=== PATIENT | male | born 1940 | race Caucasian/White ===

== ENCOUNTER 2017-05-09 11:18 | Inpatient (IN) | payer MEDICARE, OTHER ==
[~2017-05-09] VITALS: Ht 182.9 cm; Wt 94.6 kg
[2017-05-09] VITALS (10 sets, daily range): BP systolic 96–133; BP diastolic 61–81; PULSE 72–93; RESP 13–22; O2SAT 99–100
--- NOTE | 2017-05-09 12:00 | ED.REPORT ---
HPI-General Illness Date of Service May 09, 2017 ED Provider: Liza Mcgarry MD Patient is a 76 year old male with a history of diabetes, STEMI (6 months ago) status-post pacemaker (6 weeks ago) and CABGx3 who presents to the ED complaining of hematochezia onset 1000 this morning. He reports that it was loose stool. Patient states that it was bright red blood mixed with his stool. The patient states that he had 3 more episodes. Patient denies abdominal pain, chest pain, shortness of breath, dizziness or other symptoms at this time. The patient was on antibiotics 6 weeks ago after his pacemaker insertion and does not take any anticoagulants but does take ASA. Nursing Notes Stated Complaint: BLOODY DIARRHEA Chief Complaint: Male Abdominal Pain Nursing Notes Reviewed: Yes Allergies: Coded Allergies: adhesive tape (Verified Allergy, Severe, rash, 05/09/17) Scheduled Aspirin (Aspirin) 81 Mg Tablet 162 MG PO HS Atorvastatin Calcium (Atorvastatin Calcium) 40 Mg Tablet 40 MG PO HS Carvedilol (Carvedilol) 3.125 Mg Tablet 3.125 MG PO BID Levothyroxine (Levothyroxine) 137 Mcg Tablet 137 MCG PO HS Metformin (Glucophage) 1,000 Mg Tablet 1,000 MG PO BID Sacubitril/Valsartan (Entresto 49 mg-51 mg Tablet) 49 Mg-51 Mg Tablet 1 TAB PO BID Spironolactone (Spironolactone) 25 Mg Tablet 25 MG PO QAM Scheduled PRN diphenhydrAMINE HCl (Benadryl) 25 Mg Capsule 25 MG PO DAILY PRN PRN allergies General Time Seen by MD: 11:58 Chief Complaint Blood in stool Hx Obtained From: Patient Arrived By: Walk-in Sudden in Onset?: Yes Onset Occurred: 1 - 4 hours ago Symptom Duration: Since onset Severity: Current: No pain currently Similar Sx Previous: No Past Medical History Past Medical History Reports: Diabetes mellitus Past Surgical History Reports: CABG Reports: Pacemaker insertion Smoking History Unknown if Ever Smoker Social History Alcohol Use: Denies alcohol use Other Social History: Good social support, Ambulatory Status Independent Review of Systems Full Review of Systems Constitutional: Denies: Chills, Fever Respiratory: Denies: Shortness of breath Cardiovascular: Denies: Chest pain GI: Reports: Bloody/tarry stool, Diarrhea, Hematochezia, Denies: Abdominal pain, Vomiting Skin: Denies Diaphoresis Neurologic: Denies: Dizziness Complete sys rev & neg: except as marked. Physical Exam Vital Signs Vital Signs Date Time Temp Pulse Resp B/P Pulse Ox O2 Delivery O2 Flow Rate FiO2 05/09/17 13:55 75 22 120/65 100 Room Air 05/09/17 13:27 76 16 121/68 100 05/09/17 12:55 81 20 121/68 100 Room Air 05/09/17 12:22 78 13 123/68 100 Room Air 05/09/17 11:29 36.8 93 18 127/81 100 Room Air Initial VS: Reviewed General/Constitutional: Awake, Alert, No acute distress Head / Eyes: Atraumatic, Normocephalic Respiratory / Chest: Atraumatic, Breath sounds NL, Breath sounds = bilat, No respiratory distress Cardiovascular: Heart rate NL, Regular rhythm, Heart sounds NL Abdomen: Atraumatic, Soft, Non-tender Bowel Sounds / Distention: Positive: Bowel sounds hyperactive Lower Extremity / Pelvis / MS: Atraumatic, No edema Skin: Atraumatic, Color NL, No rash, Warm, Dry not diaphoretic or pale Neurologic: Oriented X3, Speech NL, Gait NL Interpretation & Diagnostics Lab Results Interpretation Result Diagram: 05/09/17 1325 05/09/17 1234 Test 05/09/17 12:34 05/09/17 13:25 White Blood Count 10.2th/mm3 (3.8-10.1) Red Blood Count 4.70mil/mm3 (4.40-5.80) Mean Corpuscular Volume 88.7fL (81-100) Mean Corpuscular Hemoglobin 29.1pg (27.0-35.0) Mean Corpuscular Hemoglobin Concent 32.9% (32.0-37.0) Red Cell Distribution Width 15.8% (12.3-15.4) Platelet Count 277bil/L (150-400) Neutrophils (%) (Auto) 72.6% (40-74) Lymphocytes (%) (Auto) 18.4% (14-46) Monocytes (%) (Auto) 7.3% (4-12) Eosinophils (%) (Auto) 1.3% (0-5) Basophils (%) (Auto) 0.2% (0-3) Prothrombin Time 10.3sec (8.1-12.5) Prothromb Time International Ratio 0.96ratio Sodium Level 139mEq/L (134-144) Potassium Level 4.6mEq/L (3.5-5.2) Chloride Level 101mEq/L (97-108) Carbon Dioxide Level 22mmol/L (18-29) Blood Urea Nitrogen 22mg/dL (8-27) Creatinine 0.73mg/dL (0.76-1.27) Estimat Glomerular Filtration Rate 111mL/min (>59) Glucose Level 136mg/dL (60-99) Calcium Level 9.1mg/dL (8.5-10.1) Magnesium Level 2.0mg/dL (1.6-2.6) Total Bilirubin 0.6mg/dL (0.0-1.2) Aspartate Amino Transf (AST/SGOT) 22U/L (0-50) Alanine Aminotransferase (ALT/SGPT) 24U/L (0-44) Alkaline Phosphatase 74U/L (25-160) Troponin T < 0.010ug/L (0.0-0.011) Total Protein 7.2g/dL (6.4-8.4) Albumin 4.4g/dL (3.4-5.0) Hold Abdalla Top Tube Received (Received) Hemoglobin 12.3g/dL (13.8-17.2) Hematocrit 37.7% (41.0-50.0) ECG Interpretation ECG Interpretation: old anterior infarct nonspecific T abnormalities in the lateral leads Time: 13:39 Interpreted by: ED physician Normal ECG Interpretation: Normal rate (75), Normal sinus rhythm X-Ray Chest Interpretation Chest Xray Interpretation: IMPRESSION: 1. No acute cardiopulmonary disease. Dictated by: Delgado Cano M.D. on 05/09/2017 at 13:34 Approved by: Delgado Cano M.D. on 05/09/2017 at 13:42 Interpretation / Wet Read by: Interpret - Radiologist Re-Eval/Medical Decision Med Decision/Clinical Course 76-year-old gentleman presents with an initial episode of what he describes as bright red blood with a bowel movement. It was followed shortly thereafter by 3 more episodes of what he describes as bloody diarrhea. Has episode of this in the emergency room and it looks far more like melena then diarrhea or any diverticular type bleeding. His proceeded to have at least to my large-volume melanotic stools in the emergency department. Throughout his entire emergency room stay he has remained hemodynamically very stable. He is not tachycardic he is not orthostatic or hypotensive. He is not having chest pain or abdominal pain. He does have hyperactive bowel tones in continues to have significant amounts of melanotic stool. He is given a liter of fluid to begin volume resuscitation again he is not orthostatic nor is he hypertensive. Second H&H after an hour is being obtained. He does have 2 large-bore IVs. Contacted gastroenterology and will contact him again should he become acutely unstable otherwise will expect hospital inpatient consultation. Cares been reviewed with the hospitalist and he will go to the PCU In the emergency room he is started on proton pump inhibitor drip. He had a STEMI in October of this year followed by a 3 vessel bypass at [facility]. He had a pacer defibrillator placed about 6 weeks ago presumably for a very low ejection fraction but records have been requested. He remains clinically stable while in the ER. I continue to remain quite concerned about the volumes of melanotic stool is producing Time of Eval: 12:25 Re-Evaluation/Progress Note: Stool examination reveals moderate melanotic type stool. Time of Eval: 12:52 Re-Evaluation/Progress Note: Discussed concerns and plan for repeat H&H testing. Discussed plan for admit. patient understands and agrees to plan. All questions were addressed. Consultation #1: Referral / Consult Name: Hernan Francis MD Consulted With: On-call physician (GI) Call Returned at: 12:38 Scholarship Counselor: Will see patient, Agrees with eval, Agrees with plan Consultation #2: Referral / Consult Name: Mary Magallanes DO Consulted With: Hospitalist Call Returned at: 13:33 Scholarship Counselor: Agrees with eval, Agrees with plan, Accepts admit Counseled Regarding: Diagnosis, Lab results, Need for admission Discharge & Departure Primary Impression: GI bleed GI bleed type/associated pathology: unspecified gastrointestinal hemorrhage type Qualified Code: K92.2 - Gastrointestinal hemorrhage, unspecified Disposition: ADMITTED TO HOSPITAL Discharge Condition All VS Reviewed: Yes Condition: Stable Referrals: Marcel Nice MD (PCP) (Family) Crit Care Except Billable Proc Time Spent: 30-74 minutes Scribe Attestation Portions of this note were transcribed by Hilda Forrester. I, Dr. Mcgarry personally performed the history, physical exam and medical decision-making; I reviewed and confirmed the accuracy of the information in the transcribed note. Signed by: Alexx Kramer, 05/09/17. copies to: Marcel Nice MD, Shawna L MD May 09, 2017 12:00 Homa Forrester May 09, 2017 12:08
[2017-05-09] MEDS ORDERED: Pantoprazole Inj 80 MG, Pharmacy To Mix 1 EA in 0.9% Sodium Chloride 80 ML IV ONE ×2 (12:25)
[2017-05-09] MEDS ORDERED: Pantoprazole 4 mg/mL 10 mL Inj IVPUSH ONE (12:25)
[2017-05-09] MEDS ORDERED: 0.9% Sodium Chloride 1,000 ML IV ONE (12:25)
[2017-05-09 12:37] LABS: BASOPHILS % (AUTO) 0.2 % (0-3); EOSINOPHILS % (AUTO) 1.3 % (0-5); MONOCYTES % (AUTO) 7.3 % (4-12); Mean Corpuscular Hemoglobin 29.1 pg (27.0-35.0); Mean Corpuscular Volume 88.7 fL (81-100); NEUTROPHILS % (AUTO) 72.6 % (40-74); Platelet Count 277 bil/L (150-400)
[2017-05-09 12:53] LABS: INR 0.96 ratio
[2017-05-09 13:26] LABS: TROPONIN T < 0.010 ug/L (0.0-0.011)
--- NOTE | 2017-05-09 13:44 | DRSVH ---
PROCEDURE: X-RAY CHEST ONE VIEW, PORTABLE ([id number]) INDICATIONS: dysthrythmia TECHNIQUE: One view of the chest was acquired. COMPARISON: [facility], CR, CHEST 1 VIEW, 11/03/2016, 21:50. [facility], CR, CHEST 2VW, 03/19/2013, 9:52. FINDINGS: Surgical changes and devices: Left chest with AICD is demonstrated with leads projecting over the rig ht atrium and right ventricle. Lungs and pleura: No pleural effusions or pneumothorax. Visualized lungs are clear. Mediastinum: Mediastinal contours appear normal. Heart size is normal. Bones and chest wall: No suspicious bony lesions. Overlying soft tissues appear unremarkable. IMPRESSION: 1. No acute cardiopulmonary disease. Dictated by: Delgado Cano M.D. on 05/09/2017 at 13:34 Approved by: Delgado Cano M.D. on 05/09/2017 at 13:42
[2017-05-09] MEDS ORDERED: LEVO137T2 PO (14:38)
[2017-05-09] MEDS ORDERED: SACU1TAB7 PO (14:38)
[2017-05-09] MEDS ORDERED: METF1000 PO (14:38)
[2017-05-09] MEDS ORDERED: ASPI-973 PO (14:38)
[2017-05-09] MEDS ORDERED: SPIR25TA3 PO (14:38)
[2017-05-09] MEDS ORDERED: ATOR40TA69 PO (14:38)
[2017-05-09] MEDS ORDERED: CARV3.122 PO (14:38)
[2017-05-09] MEDS ORDERED: DIPH25CA6 PO (14:39)
--- NOTE | 2017-05-09 15:42 | PCM.HPMED ---
Subjective Date of Service May 09, 2017 Primary Provider: Admitting Physician: Mary Magallanes DO Primary Care Physician: Marcel Nice MD Attending Physician: Mary Magallanes DO Admit Status: From the Emergency Department Chief Complaint: bloody and loose bowel movements History of Present Illness: Nicholas Farmer is a 76 y/o male with a significant PMH of STEMI (10/29) s/p CABG X3 and combined AICD and pacemaker implant about 6 weeks ago, diabetes mellitus Type II, and thyroid cancer s/p thyroidectomy and radiation who presents to the ED with bloody diarrhea. Patient states he had his first bowel movement around 10:00 am today, described as soft in consistency and cranberry colored. Had 3 more bloody bowel movements before presentation to ER. Admits to recent changes in diet, including increased fiber. Denies dizziness, loss of balance, or syncope. Denies abdominal pain, nausea or vomiting. Denies associated fever or chills as well as lightheadedness, visual changes, chest pain, SOB. Denies previous history of similar symptoms, although has noticed that his stool is softer for last month. He notes that he has skin tags in the breezy-anal area that can sometimes bleed but very minimally. Denies significant alcohol use or smoking history. Pertinent negative PMH of GERD or stomach ulcers. Denies NSAID use but does take aspirin 81 mg daily. Last use of antibiotics was about 6 weeks ago. Denies any recent unintentional weight loss, fatigue, or weakness. Reports last colonoscopy about 5-10 years ago was normal. ED course: Vital signs in the ED were: Temp 36.8, HR 93, RR 18, BP 127/81, 100% RA. Patient had 4 bowel movements, consistent with diarrhea and melanotic appearance. Pertinent labs include: WBC of 10.2, HGB 13.7, HCT 41.8. About 1 hour later, Hgb decreased to 12.3 and Hct down to 37.7. GI, Dr. Francis was consulted. Patient Was started on Protonix bolus (8 mg IV 1x) and protonix drip and normal saline (1000 ml IV 1x). When patient was transferred on the floor, nurse noticed that the stool did not appear melanotic, but rather bright red like hematochezia. He is being admitted for likely GI bleed with resultant normocytic anemia. Review of Systems: The comprehensive review of systems was conducted with the patient and found to be negative except as above in the history of present illness. 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, and thyroid cancer s/ p thyroidectomy and radiation Surgical History CABG Combined AICD and pacemaker placement Thyroidectomy Tonsillectomy Lower extremity surgery following a fall Family History Gema history is significant for a mother who had a CVA at age 64, father with history of ulcers and CVA, grandmother with history of pancreatic cancer Social History Hx Alcohol Use: No Hx Substance Use: No Hx Tobacco Use: Yes Smoking Status: Former Smoker (1 year 55 years ago) Years of Smokin Living Arrangement: with Family Exam Vital Signs Vital Sign - Last Date Time Temp Pulse Resp B/P Pulse Ox O2 Delivery O2 Flow Rate FiO2 05/09/17 13:55 75 22 120/65 100 Room Air 05/09/17 11:29 36.8 Exam General: Patient is lying comfortably on bed, AAOX3, not in acute distress, cooperative and pleasant. HEENT: head normocephalic and atraumatic, PERRLA, EOMI, no scleral icterus, noninjected conjunctiva Neck: neck supple, non-tender, no lymphadenopathy, trachea midline, no JVD CV: regular rate and rhythm, s1 and s2 heard, radial pulses equal bilaterally, no rubs, murmurs or gallops, no edema Lungs: Clear to auscultation bilaterally, no wheezes, rales or rhonchi, no increased work of breathing Abdomen: hyperactive bowel sounds on 4Q, soft, non-distended, non-tender to palpation, no organomegally, Skin: warm and dry, CABG incision well healed, incision from AICD/ ppm healing properly, no erythema, or bleeding Musculoskeletal: 12/17 UE and LE strength bilaterally, full ROM bilaterally Neuro: Grossly neurologically intact, cranial nerves II through XII intact, no dyskinesia, dysmetria, or dysdiadochokinesia noted, decreased sensation on soles of feet bilaterally Psych: Normal mood and affect Lab and Diagnostics Labs Laboratory Tests Test 05/09/17 12:34 05/09/17 13:25 05/09/17 15:30 White Blood Count 10.2th/mm3 (3.8-10.1) Red Blood Count 4.70mil/mm3 (4.40-5.80) Hemoglobin 13.7g/dL (13.8-17.2) 12.3g/dL (13.8-17.2) 12.7g/dL (13.8-17.2) Hematocrit 41.7% (41.0-50.0) 37.7% (41.0-50.0) 38.3% (41.0-50.0) Mean Corpuscular Volume 88.7fL (81-100) Mean Corpuscular Hemoglobin 29.1pg (27.0-35.0) Mean Corpuscular Hemoglobin Concent 32.9% (32.0-37.0) Red Cell Distribution Width 15.8% (12.3-15.4) Platelet Count 277bil/L (150-400) Neutrophils (%) (Auto) 72.6% (40-74) Lymphocytes (%) (Auto) 18.4% (14-46) Monocytes (%) (Auto) 7.3% (4-12) Eosinophils (%) (Auto) 1.3% (0-5) Basophils (%) (Auto) 0.2% (0-3) Prothrombin Time 10.3sec (8.1-12.5) Prothromb Time International Ratio 0.96ratio Sodium Level 139mEq/L (134-144) Potassium Level 4.6mEq/L (3.5-5.2) Chloride Level 101mEq/L (97-108) Carbon Dioxide Level 22mmol/L (18-29) Blood Urea Nitrogen 22mg/dL (8-27) Creatinine 0.73mg/dL (0.76-1.27) Estimat Glomerular Filtration Rate 111mL/min (>59) Glucose Level 136mg/dL (60-99) Calcium Level 9.1mg/dL (8.5-10.1) Magnesium Level 2.0mg/dL (1.6-2.6) Total Bilirubin 0.6mg/dL (0.0-1.2) Aspartate Amino Transf (AST/SGOT) 22U/L (0-50) Alanine Aminotransferase (ALT/SGPT) 24U/L (0-44) Alkaline Phosphatase 74U/L (25-160) Troponin T < 0.010ug/L (0.0-0.011) Total Protein 7.2g/dL (6.4-8.4) Albumin 4.4g/dL (3.4-5.0) Hold Abdalla Top Tube Received (Received) Result Diagram: 05/09/17 1325 05/09/17 1234 X-Rays, CTs and MRIs PROCEDURE: X-RAY CHEST ONE VIEW, PORTABLE ([id number]) IMPRESSION: 1. No acute cardiopulmonary disease. Approved by: Delgado Cano M.D. on 05/09/2017 at 13:42 12-lead ECG ECG Interpretation: old anterior infarct nonspecific T abnormalities in the lateral leads Time: 13:39 Interpreted by: ED physician Normal ECG Interpretation: Normal rate (75), Normal sinus rhythm Assessment & Plan Nicholas Farmer is a 76 y/o male with a significant PMH of STEMI (10/29) s/p CABG X3 and combined AICD and pacemaker implant about 6 weeks ago, diabetes mellitus Type II, and thyroid cancer s/p thyroidectomy and radiation who presents to the ED with bloody diarrhea, initially bright red blood followed by melena. Pertinent labs include: WBC of 10.2, HGB 13.7, HCT 41.8. About 1 hour later, Hgb decreased to 12.3 and Hct down to 37.7. GI, Dr. Francis was consulted. Patient Was started on Protonix bolus (8 mg IV 1x) and protonix drip and normal saline (1000 ml IV 1x). He is being admitted for likely GI bleed with resultant normocytic anemia. Acute GI bleed with Melena and Hematochezia, present on admission, ongoing. -Patient reports that around 10 am, he noticed soft stools with bright red blood. ED reports that patient had multiple episodes of diarrhea with melanotic stools. Nurse described the stool as more like hematochezia. -Possible etiologies of Upper VS Lower GI bleed include: PUD, erosive gastropathy, esophagitis, diverticular bleed, polyp/tumor VS infectious etiology -BUN/CR ratio 30 -H/H on admit was 13.7/ 41.8. 1 hour later, H/H trended down to 12.3/37.7. -Blood pressures have remained stable. Patient received 1L NS bolus in ED. -Patient is not on any anticoagulation. Takes ASA daily. Hold ASA -IV protonix bolus and drip initiated in the ED. Continue. -Blood Typed and Crossed. Holding 2 units of PRBCs -Trend H/H q6hrs. Transfuse with threshold of Hgb <8 given extensive cardiovascular history of CAD, consent has been signed for transfusion -Keep patient NPO after midnight clear liquids until then. IV hydration with NS at 75 mls/hr -Stool sent for cultures to rule out infectious etiology -Gastroenterology, Dr. Francis was consulted in the ED will take the patient for colonoscopy and possible upper EGD tomorrow -Plan is for patient to undergo colonoscopy tomorrow in am given hematochezia and possible EGD if colonoscopy findings are negative. Normocytic Anemia, present on admission, ongoing. -H/H on admit was 13.7/ 41.8. 1 hour later, H/H trended down to 12.3/37.7. -Trend H/H q6hrs. Transfuse with threshold of Hgb <8 given extensive cardiovascular history of CAD --Blood Typed and Crossed. Holding 2 units of PRBCs Type II Diabetes Mellitus with complications of peripheral neuropathy, present on admission, ongoing -Blood glucose in the ED was 136 -Hold home metformin -Mcdonough lispro correctional scale -Order [id number] History of STEMI s/p CABG X3 and combined AICD/pacemaker implant, present on admission, chronic -EKG in the ED shows NSR with HR 75 and evidence of old anterior infarct -Continue Carvedilol, Entresto and Spironolactone -Monitor telemetry History of thyroid carcinoma s/p thyroidectomy and radiation -Continue Levothyroxine Patient Status: Patient is admitted under inpatient status expected length of stay greater than 2 midnights due to severity of presenting symptoms, risk of adverse events, and complexity of treatment plan. Code Status: Full Code Pain Evaluation: Adequate Pain Control GI Prophylaxis: Proton Pump Inhibitor (on IV protonix drip ) VTE Prophylaxis Indicated: Contraindicated (GI bleed) VTE Mechanical Devices: Intermittant Pneumatic CD Resuscitation Status: CPR: Attempt Resuscitation Time spent Greater than 45 minutes Attending Statement The patient was seen and examined together with Dr. Salomon on 05/09/17 and I have added additional information to the note above. Britta Salomon DO May 09, 2017 14:57 Mary Magallanes DO May 09, 2017 17:47
[2017-05-09] MEDS ORDERED: Glucose 40% Oral Gel 15 Gm Tube PO PRN (16:35)
[2017-05-09] MEDS ORDERED: Dextrose 10% 250 ML IV PRN (16:40)
[2017-05-09] MEDS: Insulin LISPRO 300 Unit/3 mL Inj SUBQ SCH ×2 (16:58→22:00)
[2017-05-09 17:08] LABS: APPEARANCE,URINE CLEAR (CLEAR,HAZY); COLOR,URINE YELLOW (YELLOW); OCCULT BLOOD,URINE NEGATIVE (NEGATIVE); PH,URINE 5.5 (5.0-8.0); UROBILINOGEN,URINE NORMAL (NORMAL)
--- NOTE | 2017-05-09 17:12 | PCM.ADCARE ---
Advance Care Planning Note Plan: Date: 05/09/2017 Diagnosis: Acute blood loss anemia GI bleed Hypothyroidism secondary to thyroidectomy due to thyroid cancer Diabetes CABG Pacemaker 6 weeks ago Purpose of encounter: Goals of care Parties in attendance: The patient, his , Dr. Salomon, Dr. Tovar, his nurse Dr. Elpidio Brand Decisional capacity: Good Plan: The patient is aware of the current diagnosis and would like to continue to be full code. The patient and understands that this means for chest compressions, intubation, pressors, and all measures involved with CPR. CODE STATUS: Full code Time spent with advanced care planning: Greater than 16 minutes Mary Magallanes DO May 09, 2017 17:12
[2017-05-09] MEDS ORDERED: diphenhydrAMINE 25 mg Capsule PO PRN (17:20)
[2017-05-09] MEDS: 0.9% Sodium Chloride 1,000 ML IV SCH (17:23)
[2017-05-09] MEDS ORDERED: PEG/Electrolytes 4,000 mL Solution PO ONE (17:25)
--- NOTE | 2017-05-09 21:13 | CONS ---
[address] [address] CONSULTATION REPORT PATIENT: SHER WALDEN : 1940 MR#: [id number] ADMIT: 05/09/2017 JOB ID: [id number] DATE OF SERVICE: REQUESTING PROVIDER: Liza Mcgarry MD. REASON FOR CONSULTATION: GI bleeding. HISTORY OF PRESENT ILLNESS: This is a 76-year-old male on aspirin for coronary artery disease, with a recent ID about six weeks ago. He also has a pacemaker. He otherwise has not experienced any antecedent change in bowel habit. This morning, however, at around 10 a.m., he started to pass in essence dark, obviously bloody bowel motion. He has had no abdominal pain, nausea, or vomiting with any of his symptoms. He was not presyncopal or syncopal. Vital signs have been stable. He came into the ED this morning and his hemoglobin was 13.7. It has since dropped to 12.3 at around 1:25 this afternoon. Subsequently, at about 3:30, he demonstrated stability with a hemoglobin of 12.7. ALLERGIES: ADHESIVE TAPE. MEDICATIONS: Aspirin, Benadryl, Lipitor, carvedilol, sacubitril, valsartan, spironolactone, levothyroxine, and metformin. The patient denies any other nonsteroidal anti-inflammatory use. MEDICAL HISTORY: Diabetes, hypertension, coronary artery disease, thyroid cancer, history of radiation. PAST SURGICAL HISTORY: Coronary artery bypass grafting, combined AICD and pacemaker placement, thyroidectomy, tonsillectomy, lower extremity surgery following a fall. He has a history of a remote colonoscopy by Dr. Knox many years ago and does not recall any polyps ever being removed. He has never had an upper endoscopy. FAMILY HISTORY: Stroke and pancreatic cancer are in the family. SOCIAL HISTORY: He is an ex-smoker. Does not use any other substances. His was at the bedside. REVIEW OF SYSTEMS: No report of any current cardiopulmonary complaints. He is otherwise feeling well. No antecedent weight loss. He has not experienced any problems with reflux or difficulty swallowing. Typically at his baseline, he has had a slight diathesis towards constipation where he may not have a bowel movement for two or three days. The patient was out for dinner this past Tuesday, celebrating an anniversary. He had clams, muscles and shrimp in a pasta dish. OBJECTIVE: Blood pressure 122/70, pulse 74, breathing 18, temperature 36.7, 99% on room air. The patient was in no distress. Alert, oriented, appropriate, cooperative, conversational. Skin: Warm and dry. Sclerae anicteric. Lungs: Clear bilaterally. Good respiratory effort. Heart regular. No significant peripheral pitting edema. Abdomen was soft, with bowel sounds. No focal areas of tenderness elicited throughout. In the bedside commode, I saw perhaps about 100 cc of obvious dark red excrement. This did not look like classic melena. LABORATORIES: Hemoglobin 12.7, hematocrit 38.3. INR is 0.96. Platelets were 277. White count at presentation 10.2, with a normal differential. Liver tests are normal. Glucose was 136, creatinine 0.73. BUN was 22. The remainder of the electrolytes were normal. Stool study was collected for enteric pathogens by PCR and is pending. IMAGING: Chest x-ray showed no acute cardiopulmonary disease. ASSESSMENT AND RECOMMENDATIONS: This is a 76-year-old male with onset of gastrointestinal bleeding today, starting around 10 a.m. This has been painless without presyncope or postural symptoms. His hemoglobin is actually relatively stable this afternoon in spite of the appearance in the bedside commode of the maroon dark red output. I think it is quite unlikely that he is having an upper GI bleed based on his overall clinical stability. I suspect this is most likely a lower source. I therefore recommended we proceed with bowel prep this afternoon and have placed him on the schedule for colonoscopy tomorrow morning at 7:30. If there is absolutely no explanation at colonoscopy, we plan to add on an EGD at that time. For now, I have no problem with the patient remaining on a PPI drip overnight. I have ordered the bowel prep. He can be on clear liquids until 4:30 in the morning. I would recommend nothing red. Endo staff are aware of the add-on request and are attempting to get his pacemaker/AICD paperwork complete. Based on his higher risk status I have requested anesthesia for his sedation experience. I discussed the risks of EGD and colonoscopy with the patient and his at the bedside. The patient has verbally consented and I have requested that he sign the written paperwork as well.
[2017-05-09] MEDS ORDERED: Pantoprazole Inj 80 MG in 0.9% Sodium Chloride 80 ML IV SCH (22:00)
[2017-05-10] VITALS (16 sets, daily range): BP systolic 88–122; BP diastolic 42–78; PULSE 73–95; RESP 16–22; O2SAT 94–98
[2017-05-10 03:53] LABS: BASOPHILS % (AUTO) 0.1 % (0-3); EOSINOPHILS % (AUTO) 0.5 % (0-5); MONOCYTES % (AUTO) 6.5 % (4-12); Mean Corpuscular Hemoglobin 28.8 pg (27.0-35.0); Mean Corpuscular Volume 88.8 fL (81-100); NEUTROPHILS % (AUTO) 72.2 % (40-74); Platelet Count 219 bil/L (150-400)
--- NOTE | 2017-05-10 05:31 | NUR ---
Bowel Prep {t was started on bowel prep for a colonoscopy today at 0730. Pt able to consume all of bowel prep before 0430 where is has been NPO since. Pt was having bright red stools for most of shift and then darker stools. Pt stated only having one episode of dizziness earlier and has not had another occurrence. Pt is using call light for needs and has been steady on feet. VSS and Tele SR
[2017-05-10] MEDS: 0.9% Sodium Chloride 1,000 ML IV SCH ×2 (06:25→19:35)
[2017-05-10] MEDS: Lactated Ringer's 1,000 ML IV SCH ×2 (07:09→07:42)
[2017-05-10] MEDS ORDERED: MetoCLOpramide 5 mg/mL 2 mL Inj IVPUSH PRN (07:10)
[2017-05-10] MEDS ORDERED: Ondansetron 2 mg/mL 2 mL Inj IVPUSH PRN (07:10)
--- NOTE | 2017-05-10 07:11 | PCM.HPANE ---
Patient Data Date of Service: May 10, 2017 Surgeon Admitting Provider:Mary Magallanes DO Attending Provider:Chalino Hubbard DO Primary Care Physician:Marcel Nice MD Other Provider: Reason for Visit Gi Bleed Ht/WT & BMI Height (Feet): 6 Height (Inches): 0.00 Weight (Kilograms): 94.900 Body Mass Index 28.07 Allergies Coded Allergies: adhesive tape (Verified Allergy, Severe, rash, 05/09/17) Past Anesthesia History Anesthesia History: Denies:: Abnormal Airway, Anesthesia Reactions Diabetes History Hx Diabetes?: Yes (oral DM meds) Glycemic Control: Oral Medication Current Bedside Blood Glucose: 135 MRSA MRSA: No Medications Blood Thinner: Aspirin Hypertension Medication: Yes Home Meds Incl Beta Dorys: Yes Reported Medications diphenhydrAMINE HCl (Benadryl)25 Mg [id number] Mg PO DAILY PRN allergies Ref 0 05/09/17 Aspirin 81 Mg [id number] Mg PO HS Ref 0 05/09/17 Metformin (Glucophage)1,000 Mg Tablet1,000 Mg PO BID #180 05/09/17 Atorvastatin Calcium 40 Mg [id number] Mg PO HS #90 05/09/17 Carvedilol 3.125 Mg Tablet3.125 Mg PO BID #180 05/09/17 Levothyroxine 137 Mcg [id number] Mcg PO HS #90 05/09/17 Sacubitril/Valsartan (Entresto 49 mg-51 mg Tablet)49 Mg-51 Mg Tablet1 Tab PO BID #60 05/09/17 Spironolactone 25 Mg [id number] Mg PO QAM #30 05/09/17 History History of ENT Problems?: No HEENT History: Denies:: Abnormal Airway Denture Type: None Teeth Condition: Within Normal Limits Hx of Heart Problems?: Yes Cardiovascular History: Positive for:: AICD Cardiac Surgery (CABG November 05, 2016, Pacer March 22, 2017) Hypertension Pacemaker Denies:: Chest Pain Congestive Heart Failure Edema Heart Murmur Irregular Heartbeat Thrombophlebitis Hx of Respiratory Problem?: No Respiratory History: Positive for:: Chest Surgery Denies:: Asthma Hx Neurologic Problems?: No Hx of GI Problems?: No Hx of Problems?: No HX of Peritoneal Dialysis: No Male Hx: Denies:: Prostate Problems Scrotal Mass Testicular Surgery Hx Musculoskeletal Problems?: Yes Musculoskeletal History: Positive for:: Back Injury (broken back approx 25 years ago with no surgery) Denies:: Joint Replacement Musculoskeletal Trauma Hx of Psycho/Social Problems?: No Hx Surgeries?: Yes Hx Any Other Health Problems?: Yes Other History: Positive for:: Hospitalization Denies:: Cancer Thyroid Disease History Blood Transfusions: Positive for:: Accept Blood Products? Denies:: Blood Transfuse Reaction Blood Transfusions Hx Diabetes: Yes (oral DM meds)Bedside Blood Glucose: 135 Hx Alcohol Use: YesAlcoholic Drinks Per Day: 5-10/ YEAR; no alcohol since Substance Use: No Smoking Status: Former Smoker (1 year 55 years ago) Have You Smoked inLast 12 mo: No Stop/Bang Treated for Sleep Apnea?: Yes Do You Have a CPAP Machine?: Yes (spouse to bring it in today) S-Snoring: Do You Snore Loudly: No T-Tired: feel tired, fatigued: No O-Obsered: Observed not breath: Yes P-Blood Pressure: treated: Yes B- Body Mass Index > 35 kg/m2: No A- Age over 50: Yes N- Neck Large Circumference: No G- Gender Male: Yes WALTER Total Score: 3 WALTER Risk Assessment: Low Risk, <3 Yes Risk Assessment Category Category 1A: Patient has history of documented sleep apnea, and HAS NOT received any narcotic, sedative or anesthesia administration during this stay. Category 1B: Patient has history of documented sleep apnea, and HAS received any narcotic , sedative or anesthesia administration during this stay Category 2: Patient has SUSPECTED Obstructive Sleep Apnea, and HAS received any narcotic , sedative or anesthesia administration during this stay. Category 3: Patient has SUSPECTED Obstructive Sleep Apnea and HAS NOT received narcotic, sedative or anesthesia administration during this stay. Category 4: Outpatient in Procedural Areas with known sleep apnea or who screen positive for High Risk via the STOP/BANG questionnaire. Exam Exam Vital Signs Vital Signs Date Time Temp Pulse Resp B/P Pulse Ox O2 Delivery O2 Flow Rate FiO2 05/10/17 03:14 36.6 91 18 98/58 97 Room Air 05/09/17 23:52 36.7 92 18 96/61 99 Room Air General Appearance: Alert, Oriented X3 HEENT/AIRWAY: MP 1 Lungs: Clear to Auscultation Heart: Exam Unremarkable Meds/Labs/Diagnostics Admission Meds Current Medications Pantoprazole 80 mg 80 mg STAT ONCE IVPUSH Last administered on 05/09/17 12:53 ; Start 05/09/17 at 12:25; Stop 05/09/17 at 12:27; Status DC Pantoprazole 80 mg/Miscellaneous 1 ea/Sodium Chloride 100 ml @ 10 mls/hr ONCE ONCE IV Last administered on 05/09/17 12:55; Start 05/09/17 at 12:25; Stop at 22:24; Status DC Sodium Chloride 1,000 ml @ 0 mls/hr Q0M ONCE IV Last administered on 12:50; Start 05/09/17 at 12:25; Stop 05/09/17 at 12:27; Status DC Pantoprazole 80 mg/Sodium Chloride 100 ml @ 10 mls/hr Q10H IV Last administered on 05/09/17 23:10; Start 05/09/17 at 22:00 Sodium Chloride (Normal Saline) 1,000 ml @ 75 mls/hr [id number] IV Last administered on 05/10/17 06:25; Start 05/09/17 at 16:55 Atorvastatin Calcium (Lipitor) 40 mg HS PO Last administered on 05/09/17 20:07 ; Start 05/09/17 at 21:00 Carvedilol (Coreg) 3.125 mg BID PO Last administered on 05/09/17 20:07; Start 05/09/17 at 20:30 Levothyroxine Sodium (Synthroid) 137 mcg HS PO Last administered on 05/09/17 20:07; Start 05/09/17 at 21:00 Polyethylene Glycol/ Electrolytes (Colyte) 4,000 ml ONCE ONCE PO Last administered on 05/09/17 17:25; Start 05/09/17 at 17:25; Stop 05/09/17 at 17:26 ; Status DC Bedside Blood Glucose: 135 Labs Test 05/09/17 12:34 05/09/17 16:16 05/09/17 17:58 05/10/17 03:45 Prothrombin Time 10.3sec (8.1-12.5) Prothromb Time International Ratio 0.96ratio Magnesium Level 2.0mg/dL (1.6-2.6) Troponin T < 0.010ug/L (0.0-0.011) Hold Abdalla Top Tube Received (Received) Urine Color Yellow (YELLOW) Urine Appearance Clear (CLEAR,HAZY) Urine pH 5.5 (5.0-8.0) Urine Specific [place] 1.025 (1.003-1.035) Urine Protein Negativemg/dL (NEG,TRACE) Urine Glucose (UA) Negativemg/dL (NEGATIVE) Urine Ketones Negativemg/dL (NEGATIVE) Urine Occult Blood Negative (NEGATIVE) Urine Nitrite Negative (NEGATIVE) Urine Bilirubin Negative (NEGATIVE) Urine Urobilinogen Normalmg/dL (NORMAL) Urine Leukocyte Esterase Negative (NEGATIVE) Urine RBC 0-2/hpf (0-2) Urine WBC 0-5/hpf (0-5) Urine Epithelial Cells Few/hpf (NONE-MOD) Urine Crystals None seen (NONE SEEN) Urine Bacteria Few/hpf (NONE-FEW) Urine Hyaline Casts None/lpf (NONE) Urine Granular Casts None seen (NONE SEEN) Urine Waxy Casts None seen (NONE SEEN) Urine Red Blood Cell Casts None seen (NONE SEEN) Urine White Blood Cell Casts None seen (NONE SEEN) Urine Mucus None seen (None Seen) Urine Trichomonas None seen (NONE SEEN) Urine Yeast None (NONE SEEN) Urinalysis Comment None Urine Culture Reflexed Not indicated Hold Purple Top Tube Received (Received) White Blood Count 7.7th/mm3 (3.8-10.1) Red Blood Count 3.12mil/mm3 (4.40-5.80) Hemoglobin 9.0g/dL (13.8-17.2) Hematocrit 27.7% (41.0-50.0) Mean Corpuscular Volume 88.8fL (81-100) Mean Corpuscular Hemoglobin 28.8pg (27.0-35.0) Mean Corpuscular Hemoglobin Concent 32.5% (32.0-37.0) Red Cell Distribution Width 15.6% (12.3-15.4) Platelet Count 219bil/L (150-400) Neutrophils (%) (Auto) 72.2% (40-74) Lymphocytes (%) (Auto) 20.6% (14-46) Monocytes (%) (Auto) 6.5% (4-12) Eosinophils (%) (Auto) 0.5% (0-5) Basophils (%) (Auto) 0.1% (0-3) Sodium Level 139mEq/L (134-144) Potassium Level 4.5mEq/L (3.5-5.2) Chloride Level 104mEq/L (97-108) Carbon Dioxide Level 22mmol/L (18-29) Blood Urea Nitrogen 18mg/dL (8-27) Creatinine 0.65mg/dL (0.76-1.27) Estimat Glomerular Filtration Rate 127mL/min (>59) Glucose Level 147mg/dL (60-99) Calcium Level 7.5mg/dL (8.5-10.1) Total Bilirubin 0.7mg/dL (0.0-1.2) Aspartate Amino Transf (AST/SGOT) 15U/L (0-50) Alanine Aminotransferase (ALT/SGPT) 16U/L (0-44) Alkaline Phosphatase 51U/L (25-160) Total Protein 5.0g/dL (6.4-8.4) Albumin 3.3g/dL (3.4-5.0) Plan Impression Patient chart reviewed, patient interviewed and anesthestic plan with risks, benefits, and alternatives discussed, and informed consent obtained. NPO per Anesth. Guidelines: Yes ASA Physical Status: ASA2 Mod Systemic Disease Anesthetic Plan: GA Bene/Risks/Altern/Consents: Yes HP Complete Prior to Induction: Yes Michael Victor MD May 10, 2017 07:11
[2017-05-10] MEDS ORDERED: Lidocaine PF 2% 10 mL Inj ONE (07:21)
[2017-05-10] MEDS ORDERED: Lactated Ringer's 1,000 ML IV ONE (07:58)
[2017-05-10] MEDS: Insulin LISPRO 300 Unit/3 mL Inj SUBQ SCH ×4 (08:00→20:47)
[2017-05-10] MEDS: Sacubitril/Valsartan (Entresto 49 mg-51 mg Tablet) PO SCH ×2 (08:30→20:45)
--- NOTE | 2017-05-10 08:51 | ENDO ---
[address] [address] ENDOSCOPY PROCEDURE PATIENT: SHER WALDEN : 1940 MR#: [id number] ADMIT: 05/09/2017 JOB ID: [id number] PRIMARY PROVIDER: Marcel Nice MD PROCEDURE: Colonoscopy and esophagogastroduodenoscopy with biopsy. INDICATIONS: A 76-year-old male with GI bleeding. Endoscopic interrogation is pursued. Based on the appearance of the blood yesterday afternoon with a hemoglobin of 12.7, it appeared as though this was a lower source. Hemoglobin dropped to 9.0 overnight. EQUIPMENT: PCF-H190-DL and a GIF-H180-J. SEDATION: Monitored anesthesia as provided by Dr. Michael Victor. COMPLICATIONS: None identified. BOWEL PREPARATION: Fair, adequate exam. PROCEDURE INFORMATION: After the risks and benefits were explained, written and verbal informed consent was obtained. The patient was brought into the endoscopy suite and placed into the left lateral decubitus position. Sedation was achieved as above. A digital rectal examination was accomplished. Minimal internal hemorrhoids noted. The scope was introduced into the rectum and advanced to the cecum as identified by the appendiceal orifice and ileocecal valve. The terminal ileum was briefly accessed. The scope was then slowly withdrawn to carefully examine the mucosa for any defects or lesions. Multiple direct views were made through the dentate line for exclusion of pathology. The colon was decompressed, the scope removed from the patient who tolerated the procedure well. Because we did not see any active or obvious large bleeding source, we decided to move to the upper endoscopy. With a clean set up, the patient was turned around. The scope introduced into the mouth through the bite block, and advanced to the second portion of the duodenum. The scope was slowly withdrawn to carefully examine the mucosa for any defects or lesions. Retroflexed views were accomplished in the stomach. The stomach was decompressed, the scope removed from the patient who tolerated the procedure well. FINDINGS: 1. The patient had both left and right-sided diverticula. In the sigmoid colon, there was one diverticulum that had a few scattered erosions but no evidence of any nonbleeding visible vessel or sign of active bleeding. When we first arrived in the rectum, there was yellow residual prep and stool debris. No residual blood anywhere. I did not appreciate any significant polyps or mass lesions throughout. No inflammatory features. The terminal ileum was interrogated and appeared visually normal. The ileocecal valve was large and puffy. Mild internal hemorrhoids were noted without fissuring. No significant hemorrhoidal engorgement and no stigmata of recent bleeding appreciated. 2. Duodenum: In the duodenal bulb, there was an approximately 5-6 mm polyp just inside the pyloric channel. No ulcers. No significant erosions. No new or old blood in the duodenum. We elected to take a small biopsy of the polyp in the duodenal bulb for histopathology. 3. Stomach: No new or old blood. No ulcers or outlet obstruction. There were some very mild erosive features in the antrum consistent with aspirin use. Retroflexed views of the LES disclosed a sliding hiatal hernia. 4. Esophagus: The squamocolumnar junction correlated with the top of the gastric folds. The GEJ was at about 42 cm from the incisors. There was a sliding hiatal hernia and a subtle nonobstructing Schatzki's ring. No active inflammation anywhere. No suggestion of any Bonilla's. The remainder of the esophagus was unremarkable. ENDOSCOPIC DIAGNOSES: 1. No sign of any ongoing active bleeding. 2. Mild focus of what appears to be self-limited diverticulitis in the sigmoid. 3. Pandiverticulosis. 4. Mild internal hemorrhoids. 5. Sliding hiatal hernia. 6. Nonobstructing Schatzki's. 7. Mild erosive gastropathy. 8. Diminutive duodenal polyp. RECOMMENDATIONS: 1. Await histopathology. 2. I suspect the bleeding focus to have probably originated from the diverticulum that we identified in the sigmoid. Certainly at this point, there is no sign of any ongoing or active bleeding, and I think diet can be advanced as tolerated. 3. The PPI drip can be discontinued. 4. As long as the patient remains stable over the next 24 hours, then I think he should be eligible for discharge home.
--- NOTE | 2017-05-10 09:36 | PCM.ANEP1 ---
Post Anesthesia PACU Phase 1 Assessment Vital Signs Vital Signs Date Time Temp Pulse Resp B/P Pulse Ox O2 Delivery O2 Flow Rate FiO2 05/10/17 09:05 89 17 108/58 95 Room Air 05/10/17 08:56 89 17 98/57 94 Room Air 05/10/17 08:51 91 17 99/55 94 Room Air 05/10/17 08:45 91 17 95/53 94 Room Air 05/10/17 08:36 93 88/44 95 Room Air 05/10/17 08:32 95 88/55 94 Room Air 05/10/17 08:26 81 88/42 94 Room Air 05/10/17 07:27 36.9 87 114/70 97 Room Air 05/10/17 03:14 36.6 91 18 98/58 97 Room Air Anesthetic Administered: MAC Level of Alertness: Awake, talking Pain: No Nausea or Vomiting: No CV Function & Hydration Stable: Yes Airway Device: Oxygen Delivery: Room Air Lungs: Clear to Auscultation PACU Phase 2 Assessment Complications: No Follow up Care: N/A Patient Instructions Provided: N/A Michael Victor MD May 10, 2017 09:36
--- NOTE | 2017-05-10 11:19 | NUR ---
Social Work: Initial Assessment/Multidisciplinary Rounds/Readiness for Discharge D: Per EMR review, patient is a 76 year old male admitted for GI Bleed. [place] is Medicare with [employer]; pt has no LTC or VA benefits. PCP is Marcel Nice MD. NOK is Yareli Farmer, , . Advanced directives not completed- info/forms provided. RA Score is low, 2/8. Pt discussed in Multidisciplinary rounds. Capacity for self care discussed; no concerns or needs at this time. Patient will likely be discharge home tomorrow pending GI. [employer] C[employer]TER [employer]MER met with the patient at bedside. Sw role explained, Contact information and discharge planning checklist provided. See initial assessment. Patient lives in [facility] with his on the second floor of a two story home. Patient states he has 14 steps to get to his residence and has had no issues navigating stairs. Pt uses no DME, is I with self-care and ADLs and continues to drive. No HH or SNF history. Patient anticipates discharge home with his when medically stable but is receptive to d/c planning if needs arise. A: Pt who is I at baseline. P: Anticipate discharge home via POV once medically stable; INS[employer] C[employer]TER [employer]MER to continue to follow if needs arise. MASOUD Wilson Addendum: 05/10/17 at 1124 by SHERIDAN BROOKS Amended: Links added.
[2017-05-10] MEDS ORDERED: Esmolol 10,000 mCg/mL 10 mL Inj ONE (15:14)
[2017-05-10] MEDS ORDERED: Phenylephrine/NS 100 mCg/mL 10 mL Syringe IVPUSH ONE (15:14)
[2017-05-10] MEDS ORDERED: EPHEDrine/NS 5 mg/mL 5 mL Syringe ONE (15:14)
[2017-05-10] MEDS ORDERED: Propofol 10,000 mCg/mL 20 mL Inj ONE (15:14)
--- NOTE | 2017-05-10 16:47 | NUR ---
Day Shift The pt was upper and lower scoped this morning with no acute bleeding found. Serial H&H's have lowered to 8.5, which is expected - orders are to transfuse <8. The pt remains asymptomatic with no episodes of bloody stool since late last night per manager night report. The pt is taking in adequate PO fluid and food with no GI upset or pain - reports flatulence. He calls for assistance appropriately, and is safely independent in the room. He is currently A&Ox3 with VSS. Will continue to monitor.
--- NOTE | 2017-05-10 16:50 | PCM.PNMED ---
Subjective Date of Service May 10, 2017 Subjective Nicholas Farmer is a 76 y/o male with a significant PMH of STEMI (10/29) s/p CABG X3 and combined AICD and pacemaker implant about 6 weeks ago, diabetes mellitus Type II, and thyroid cancer s/p thyroidectomy and radiation who presents to the ED with bloody diarrhea, initially bright red blood followed by melena. Pertinent labs include: WBC of 10.2, HGB 13.7, HCT 41.8. About 1 hour later, Hgb decreased to 12.3 and Hct down to 37.7. GI, Dr. Francis was consulted. Patient Was started on Protonix bolus (8 mg IV 1x) and protonix drip and normal saline (1000 ml IV 1x). He is being admitted for likely GI bleed with resultant normocytic anemia. Patient was seen and examined by me today. Overnight started on bowel prep for colonoscopy today, made NPO since 4:30 am. Bowel movements continued to be dark in color, according to patient. Experienced one episode if dizziness while when getting up from commode, resolved with sitting. Denies fever or chills. No nausea or vomiting. No urinary hesitancy, urgency, or hematuria. No chest pain or palpitations. Denies shortness of breath. All other review of systems negative. There were no acute events overnight Exam Vital Signs Vital Sign - Last Date Time Temp Pulse Resp B/P Pulse Ox O2 Delivery O2 Flow Rate FiO2 05/10/17 07:27 36.9 87 114/70 97 Room Air 05/10/17 03:14 18 Intake and Output 05/09/17 05/09/17 05/10/17 Cumulative From/Thru 15:00 23:00 07:00 05/09/17 11:29 - 05/10/17 06:36 Intake Total 1000 ml 0 ml 5110 ml 6110 ml Output Total 3 ml 3650 ml 3653 ml Balance 1000 ml -3 ml 1460 ml 2457 ml Intake Oral 0 ml 4000 ml 4000 ml IV Total 1000 ml 1110 ml 2110 ml Output Urine Total 3 ml 400 ml 403 ml Stool Total 3250 ml 3250 ml Exam General: Patient is lying comfortably on bed, AAOX3, not in acute distress, cooperative and pleasant. HEENT: head normocephalic and atraumatic, PERRLA, EOMI, no scleral icterus, noninjected conjunctiva Neck: neck supple, non-tender, no lymphadenopathy, trachea midline, no JVD CV: regular rate and rhythm, s1 and s2 heard, radial pulses equal bilaterally, no rubs, murmurs or gallops, no edema Lungs: Clear to auscultation bilaterally, no wheezes, rales or rhonchi, no increased work of breathing Abdomen: hyperactive bowel sounds on 4Q, soft, non-distended, non-tender to palpation, no organomegally, Skin: warm and dry, CABG incision well healed, incision from AICD/ ppm healing properly, no erythema, or bleeding Musculoskeletal: 5/5 UE and LE strength bilaterally, full ROM bilaterally Neuro: Grossly neurologically intact, cranial nerves II through XII intact, no dyskinesia, dysmetria, or dysdiadochokinesia noted, decreased sensation on soles of feet bilaterally Psych: Normal mood and affect IVs and Medications Medications Reviewed: Medications were reviewed in detail Lab and Diagnostics Laboratory Tests Test 05/09/17 12:34 05/09/17 13:25 05/09/17 15:30 05/09/17 16:16 White Blood Count 10.2th/mm3 (3.8-10.1) Red Blood Count 4.70mil/mm3 (4.40-5.80) Hemoglobin 13.7g/dL (13.8-17.2) 12.3g/dL (13.8-17.2) 12.7g/dL (13.8-17.2) Hematocrit 41.7% (41.0-50.0) 37.7% (41.0-50.0) 38.3% (41.0-50.0) Mean Corpuscular Volume 88.7fL (81-100) Mean Corpuscular Hemoglobin 29.1pg (27.0-35.0) Mean Corpuscular Hemoglobin Concent 32.9% (32.0-37.0) Red Cell Distribution Width 15.8% (12.3-15.4) Platelet Count 277bil/L (150-400) Neutrophils (%) (Auto) 72.6% (40-74) Lymphocytes (%) (Auto) 18.4% (14-46) Monocytes (%) (Auto) 7.3% (4-12) Eosinophils (%) (Auto) 1.3% (0-5) Basophils (%) (Auto) 0.2% (0-3) Prothrombin Time 10.3sec (8.1-12.5) Prothromb Time International Ratio 0.96ratio Sodium Level 139mEq/L (134-144) Potassium Level 4.6mEq/L (3.5-5.2) Chloride Level 101mEq/L (97-108) Carbon Dioxide Level 22mmol/L (18-29) Blood Urea Nitrogen 22mg/dL (8-27) Creatinine 0.73mg/dL (0.76-1.27) Estimat Glomerular Filtration Rate 111mL/min (>59) Glucose Level 136mg/dL (60-99) Calcium Level 9.1mg/dL (8.5-10.1) Magnesium Level 2.0mg/dL (1.6-2.6) Total Bilirubin 0.6mg/dL (0.0-1.2) Aspartate Amino Transf (AST/SGOT) 22U/L (0-50) Alanine Aminotransferase (ALT/SGPT) 24U/L (0-44) Alkaline Phosphatase 74U/L (25-160) Troponin T < 0.010ug/L (0.0-0.011) Total Protein 7.2g/dL (6.4-8.4) Albumin 4.4g/dL (3.4-5.0) Hold Abdalla Top Tube Received (Received) Urine Color Yellow (YELLOW) Urine Appearance Clear (CLEAR,HAZY) Urine pH 5.5 (5.0-8.0) Urine Specific Hartley 1.025 (1.003-1.035) Urine Protein Negativemg/dL (NEG,TRACE) Urine Glucose (UA) Negativemg/dL (NEGATIVE) Urine Ketones Negativemg/dL (NEGATIVE) Urine Occult Blood Negative (NEGATIVE) Urine Nitrite Negative (NEGATIVE) Urine Bilirubin Negative (NEGATIVE) Urine Urobilinogen Normalmg/dL (NORMAL) Urine Leukocyte Esterase Negative (NEGATIVE) Urine RBC 0-2/hpf (0-2) Urine WBC 0-5/hpf (0-5) Urine Epithelial Cells Few/hpf (NONE-MOD) Urine Crystals None seen (NONE SEEN) Urine Bacteria Few/hpf (NONE-FEW) Urine Hyaline Casts None/lpf (NONE) Urine Granular Casts None seen (NONE SEEN) Urine Waxy Casts None seen (NONE SEEN) Urine Red Blood Cell Casts None seen (NONE SEEN) Urine White Blood Cell Casts None seen (NONE SEEN) Urine Mucus None seen (None Seen) Urine Trichomonas None seen (NONE SEEN) Urine Yeast None (NONE SEEN) Urinalysis Comment None Urine Culture Reflexed Not indicated Test 05/09/17 17:58 05/09/17 22:07 05/10/17 03:45 Hold Purple Top Tube Received (Received) Hemoglobin 9.8g/dL (13.8-17.2) 9.0g/dL (13.8-17.2) Hematocrit 31.1% (41.0-50.0) 27.7% (41.0-50.0) White Blood Count 7.7th/mm3 (3.8-10.1) Red Blood Count 3.12mil/mm3 (4.40-5.80) Mean Corpuscular Volume 88.8fL (81-100) Mean Corpuscular Hemoglobin 28.8pg (27.0-35.0) Mean Corpuscular Hemoglobin Concent 32.5% (32.0-37.0) Red Cell Distribution Width 15.6% (12.3-15.4) Platelet Count 219bil/L (150-400) Neutrophils (%) (Auto) 72.2% (40-74) Lymphocytes (%) (Auto) 20.6% (14-46) Monocytes (%) (Auto) 6.5% (4-12) Eosinophils (%) (Auto) 0.5% (0-5) Basophils (%) (Auto) 0.1% (0-3) Sodium Level 139mEq/L (134-144) Potassium Level 4.5mEq/L (3.5-5.2) Chloride Level 104mEq/L (97-108) Carbon Dioxide Level 22mmol/L (18-29) Blood Urea Nitrogen 18mg/dL (8-27) Creatinine 0.65mg/dL (0.76-1.27) Estimat Glomerular Filtration Rate 127mL/min (>59) Glucose Level 147mg/dL (60-99) Calcium Level 7.5mg/dL (8.5-10.1) Total Bilirubin 0.7mg/dL (0.0-1.2) Aspartate Amino Transf (AST/SGOT) 15U/L (0-50) Alanine Aminotransferase (ALT/SGPT) 16U/L (0-44) Alkaline Phosphatase 51U/L (25-160) Total Protein 5.0g/dL (6.4-8.4) Albumin 3.3g/dL (3.4-5.0) Microbiology 05/09/17 Campylobacter (PCR) - Final, Complete Not Detected 05/09/17 Clostridium difficile Toxin A&B (M) - Final, Complete Not Detected 05/09/17 Plesiomonas shigelloides (PCR) - Final, Complete Not Detected 05/09/17 Salmonella (PCR)(BRENDA) - Final, Complete Not Detected 05/09/17 Yersinia enterocolitica (PCR) - Final, Complete Not Detected 05/09/17 Vibrio Species (PCR) - Final, Complete Not Detected 05/09/17 Vibrio Cholerae (PCR) - Final, Complete Not Detected 05/09/17 Enteroaggregative E. coli (PCR) - Final, Complete Not Detected 05/09/17 Enteropathogenic E. coli (PCR) - Final, Complete Not Detected 05/09/17 Enterotoxigenic E. coli (PCR) - Final, Complete Not Detected 05/09/17 E. coli Shiga-like Toxin (PCR) - Final, Complete Not Detected 05/09/17 Escherichia coli 0157 (PCR) - Final, Complete Not Detected 05/09/17 Enteroinvasive E. coli/Shigella PCR - Final, Complete Not Detected 05/09/17 Cryptosporidium (PCR) - Final, Complete Not Detected 05/09/17 Cyclospora cayetanensis (PCR) - Final, Complete Not Detected 05/09/17 Entamoeba histolytica (PCR) - Final, Complete Not Detected 05/09/17 Giardia lamblia (PCR) - Final, Complete Not Detected 05/09/17 Adenovirus Type F 40/41 (PCR) - Final, Complete Not Detected 05/09/17 Astrovirus (PCR) - Final, Complete Not Detected 05/09/17 Norovirus (PCR) - Final, Complete Not Detected 05/09/17 Rotavirus A (PCR) - Final, Complete Not Detected 05/09/17 Sapovirus I/II/IV/V (PCR) - Final, Complete Result Diagram: 05/10/17 0345 05/10/17 0345 X-Rays, CTs and MRIs PROCEDURE: X-RAY CHEST ONE VIEW, PORTABLE ([id number]) IMPRESSION: 1. No acute cardiopulmonary disease. Approved by: Delgado Cano M.D. on 05/09/2017 at 13:42 12-lead ECG ECG Interpretation: old anterior infarct nonspecific T abnormalities in the lateral leads Time: 13:39 Interpreted by: ED physician Normal ECG Interpretation: Normal rate (75), Normal sinus rhythm Additional Diagnostics EGD and Colonscopy: FINDINGS: 1. The patient had both left and right-sided diverticula. In the sigmoid colon, there was one diverticulum that had a few scattered erosions but no evidence of any nonbleeding visible vessel or sign of active bleeding. When we first arrived in the rectum, there was yellow residual prep and stool debris. No residual blood anywhere. I did not appreciate any significant polyps or mass lesions throughout. No inflammatory features. The terminal ileum was interrogated and appeared visually normal. The ileocecal valve was large and puffy. Mild internal hemorrhoids were noted without fissuring. No significant hemorrhoidal engorgement and no stigmata of recent bleeding appreciated. 2. Duodenum: In the duodenal bulb, there was an approximately 5-6 mm polyp just inside the pyloric channel. No ulcers. No significant erosions. No new or old blood in the duodenum. We elected to take a small biopsy of the polyp in the duodenal bulb for histopathology. 3. Stomach: No new or old blood. No ulcers or outlet obstruction. There were some very mild erosive features in the antrum consistent with aspirin use. Retroflexed views of the LES disclosed a sliding hiatal hernia. 4. Esophagus: The squamocolumnar junction correlated with the top of the gastric folds. The GEJ was at about 42 cm from the incisors. There was a sliding hiatal hernia and a subtle nonobstructing Schatzki's ring. No active inflammation anywhere. No suggestion of any Bonilla's. The remainder of the esophagus was unremarkable. ENDOSCOPIC DIAGNOSES: 1. No sign of any ongoing active bleeding. 2. Mild focus of what appears to be self-limited diverticulitis in the sigmoid. 3. Pandiverticulosis. 4. Mild internal hemorrhoids. 5. Sliding hiatal hernia. 6. Nonobstructing Schatzki's. 7. Mild erosive gastropathy. 8. Diminutive duodenal polyp. Assessment & Plan Nicholas Farmer is a 76 y/o male with a significant PMH of STEMI (10/29) s/p CABG X3 and combined AICD and pacemaker implant about 6 weeks ago, diabetes mellitus Type II, and thyroid cancer s/p thyroidectomy and radiation who presents to the ED with bloody diarrhea, initially bright red blood followed by melena. Pertinent labs include: WBC of 10.2, HGB 13.7, HCT 41.8. About 1 hour later, Hgb decreased to 12.3 and Hct down to 37.7. GI, Dr. Francis was consulted. Patient Was started on Protonix bolus (8 mg IV 1x) and protonix drip and normal saline (1000 ml IV 1x). He is being admitted for likely GI bleed with resultant normocytic anemia. Acute GI bleed with Melena and Hematochezia, present on admission, ongoing. -Patient reports that around 10 am, he noticed soft stools with bright red blood. ED reports that patient had multiple episodes of diarrhea with melanotic stools. Nurse described the stool as more like hematochezia. -Possible etiologies of Upper VS Lower GI bleed include: PUD, erosive gastropathy, esophagitis, diverticular bleed, polyp/tumor VS infectious etiology -BUN/CR ratio 30 -H/H on admit was 13.7/ 41.8. 1 hour later, H/H trended down to 12.3/37.7. -Blood pressures have remained stable. Patient received 1L NS bolus in ED. -Patient is not on any anticoagulation. Takes ASA daily. Hold ASA -IV protonix bolus and drip initiated in the ED. Discontinue given negative EGD findings -Blood Typed and Crossed. Holding 2 units of PRBCs -Trend H/H q6hrs. Transfuse with threshold of Hgb <8 given extensive cardiovascular history of CAD, consent has been signed for transfusion -Advance diet as tolerated -Stool sent for cultures were negative -Gastroenterology, Dr. Francis was consulted in the ED and took patient for colonoscopy and EGD on 05/10/17 - There were no sign of any ongoing active bleeding. Other findings include: self-limited diverticulitis in the sigmoid, Pandiverticulosis, Mild internal hemorrhoids, Sliding hiatal hernia, Nonobstructing Schatzki's, Mild erosive gastropathy, Diminutive duodenal polyp. Normocytic Anemia, present on admission, ongoing. -H/H on admit was 13.7/ 41.8. 1 hour later, H/H trended down to 12.3/37.7. -Trend H/H q6hrs. Transfuse with threshold of Hgb <8 given extensive cardiovascular history of CAD --Blood Typed and Crossed. 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 Pending History of STEMI s/p CABG X3 and combined AICD/pacemaker implant, present on admission, chronic -EKG in the ED shows NSR with HR 75 and evidence of old anterior infarct -Continue Carvedilol, Entresto and Spironolactone -Monitor telemetry History of thyroid carcinoma s/p thyroidectomy and radiation -Continue Levothyroxine Disposition: Per gastroenterology, there were no active bleeding found on colonoscopy and EGD but it is likely that the bleed originated from the diverticulum identified in the sigmoid. We will continue to trend H/H to and assess patient for hemodynamic stability and observe for any more episodes of bleed. If stable, patient will likely discharge to home in the am. Code Status: Full Code GI Prophylaxis: Proton Pump Inhibitor VTE Mechanical Devices: Intermittant Pneumatic CD Resuscitation Status: CPR: Attempt Resuscitation Time spent 30 minutes Attending Statement I have seen and evaluated the patient at bedside in addition to directly supervising care provided by resident physician Dr Salomon on 05/10/2017. I agree with above documentation. Britta Salomon DO May 10, 2017 07:52 Chalino Hubbard DO May 11, 2017 08:18 polyp just inside the pyloric channel. No ulcers. No significant erosions. No new or old blood in the duodenum. We elected to take a small biopsy of the polyp in the duodenal bulb for histopathology. 3. Stomach: No new or old blood. No ulcers or outlet obstruction. There were some very mild erosive features in the antrum consistent with aspirin use. Retroflexed views of the LES disclosed a sliding hiatal hernia. 4. Esophagus: The squamocolumnar junction correlated with the top of the gastric folds. The GEJ was at about 42 cm from the incisors. There was a sliding hiatal hernia and a subtle nonobstructing Schatzki's ring. No active inflammation anywhere. No suggestion of any Bonilla's. The remainder of the esophagus was unremarkable. ENDOSCOPIC DIAGNOSES: 1. No sign of any ongoing active bleeding. 2. Mild focus of what appears to be self-limited diverticulitis in the sigmoid. 3. Pandiverticulosis. 4. Mild internal hemorrhoids. 5. Sliding hiatal hernia. 6. Nonobstructing Schatzki's. 7. Mild erosive gastropathy. 8. Diminutive duodenal polyp. RECOMMENDATIONS: 1. Await histopathology. 2. I suspect the bleeding focus to have probably originated from the diverticulum that we identified in the sigmoid. Certainly at this point, there is no sign of any ongoing or active bleeding, and I think diet can be advanced as tolerated. 3. The PPI drip can be discontinued. 4. As long as the patient remains stable over the next 24 hours, then I think he should be eligible for discharge home. GI Prophylaxis: Proton Pump Inhibitor VTE Mechanical Devices: Intermittant Pneumatic CD Resuscitation Status: CPR: Attempt Resuscitation Britta Salomon DO May 10, 2017 07:52
[2017-05-10] MEDS ORDERED: Influenza (Adult) Vaccine 0.5 mL Syringe IM ONE (17:50)
[2017-05-11 02:45] VITALS: BP 110/55; PULSE 74; RESP 16; O2SAT 95
[2017-05-11 03:05] LABS: Mean Corpuscular Volume 89.3 fL (81-100)
[2017-05-11 05:02] VITALS: BP 110/62; PULSE 75; RESP 16
[2017-05-11 05:18] VITALS: BP 118/57; PULSE 71; RESP 16
--- NOTE | 2017-05-11 06:07 | NUR ---
Care note - Transfusion Pt. a/o, denies pain or discomfort. Denies any further episodes of bloody stool yesterday/this shift. Labs drawn, Hgb resulted <8, notified (Mary) and orders received to transfusion 1Unit PRBC. Blood transfusion continuing, report given to oncoming RN. VSS. Tele- SR with occ. PAC and A-pacing.
[2017-05-11] MEDS: Sacubitril/Valsartan (Entresto 49 mg-51 mg Tablet) PO SCH (08:30)
[2017-05-11 08:36] VITALS: BP 135/68; PULSE 72; RESP 16; O2SAT 96
[2017-05-11] MEDS: Insulin LISPRO 300 Unit/3 mL Inj SUBQ SCH ×2 (09:07→12:13)
[2017-05-11 10:05] VITALS: PULSE 74
[2017-05-11 11:26] VITALS: BP 117/64; PULSE 71; RESP 20; O2SAT 98
--- NOTE | 2017-05-11 13:20 | PCM.DIMED ---
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 Neurosurgeon, Dr. Francis evaluated you and decided that he would do a colonoscopy and an endoscopy to figure out the source of the bleed. Although he found no active sources of bleeding, it is possible that the bleeding may have been due to a self-limited diverticulitis in the sigmoid. The colon sometimes has small pouches in its holt. These pouches are called "diverticula." Many people who have these pouches have no symptoms. Diverticulitis happens when these pouches develop a small tear and can be inflamed as well as bleed. During your colonoscopy and endoscopy, Dr. Francis also found Mild internal hemorrhoids, a Sliding hiatal hernia, a Nonobstructing Schatzki's ring, Mild erosive gastropathy, and Diminutive duodenal polyp that was removed. We monitored your blood counts throughout your hospital stay. The lowest was a Hemoglobin of 7.7 and you were transfused with 1 unit of blood. This improved your hemoglobin to 9.2. Prior to leaving, you were able to have a bowel movement with no evidence of blood. As we discussed, If you have had diverticulitis, it's a good idea to eat a lot of fiber. Good sources of fiber include fruits, oats, beans, peas, and green leafy vegetables. If you do not already eat fiber-rich foods, wait until after your symptoms get better to start. You do not need to avoid seeds, nuts, popcorn , or other similar foods because there is no strong evidence for this. Please follow-up with your primary care provider in a week. You will likely need to get a CBC lab work done so that your doctor can check to make sure that your blood counts have remained stable. If you see any more signs of bloody bowel movements, please contact your doctor emergently or go to the Emergency Room. Follow-up plan Please follow up with PCP 3-7 days. Follow-up Provider: Marcel Nice MD Follow-up with PCP in: 1 week (3-7 days ) Chalino Hubbard DO 05/11/17 2128: Discharge Instructions Attending's Statement Read and agree Britta Salomon DO May 11, 2017 11:53 Chalino Hubbard DO May 11, 2017 21:28
--- NOTE | 2017-05-11 14:02 | NUR ---
Social Work: Discharge/Multidisciplinary Rounds D: Pt discussed in multidisciplinary rounds; the patient is medically stable for discharge home. Capacity for self-care and needs discussed. No concerns about self-care and no discharge needs at this time. SENIOR INSTRUCTOR met with the patient and his at bedside to review discharge plan. They both agree with the plan to d/c home via POV and have no concerns about discharge. Patient has been ambulating I and completing his own self-care during admission. A: Pt who is I at baseline, P: Pt to discharge home today via POV and no identified sw needs. MASOUD Wilson
--- NOTE | 2017-05-11 15:18 | NUR ---
Discharge Pt left at 1500 with . Pt walked out to private car by RN. All discharge instructions gone over and understood, education given on GI bleeds and Diverticulitis. CPap and Home medications taken home by pt. Follow up apt made and understood. IV and tele removed.
--- NOTE | 2017-05-11 15:27 | PATH ---
SURGICAL PATHOLOGY Attending Physician:Sidra Marina CASE STATUS: Signed Out PATIENT NAME: SHER WALDEN PID: [id number] : 1940 DATE COLLECTED:05/09/2017 00:00 SPECIMEN: Duodenum, Biopsy CLINICAL HISTORY: 1). DUODENUM POLYP BIOPSY FINAL DIAGNOSIS: 1.DUODENAL POLYP, BIOPSY: PROMINENT VAN' S GLANDS, CONSISTENT WITH VAN' S GLAND HYPERPLASIA OR ADENOMA. ICD10 K31.7 GROSS DESCRIPTION: The specimen is received in one formalin filled container labeled with the patient's name, sublabeled "duodenum polyp" and consists of a 0.3 x 0.2 x 0.2 CM portion of tissue which is entirely submitted in one cassette. 05/10/2017DC MICRO DESCRIPTION: See diagnosis. ICD-9 CODES: CPT CODES: 1: 69074 Electronically Signed Out Kelly Fuentes MD [facility] [address], [place] [address] Technical component performed at [facility], [facility] [address], [place], [address]
--- NOTE | 2017-05-11 20:03 | PCM.DC.MED ---
Discharge Summary Date of Service May 11, 2017 Dates of Hospitalization Date of Hospital Admission May 09, 2017 at 14:07 Date of Discharge: May 11, 2017 Providers: Admitting Physician: Mary Magallanes DO Primary Care Physician: Marcel Nice MD Attending Physician: Chalino Hubbard DO Diagnosis at Time of Discharge Diagnosis at Time of Discharge Acute GI bleed with Hematochezia,resolved Self-limited diverticulitis in the sigmoid Pandiverticulosis Mild internal hemorrhoids Sliding hiatal hernia Nonobstructing Schatzki's Mild erosive gastropathy Diminutive duodenal polyp Acute blood Loss Normocytic Anemia 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 Francis was consulted Procedures XRay, CTs & MRIs PROCEDURE: X-RAY CHEST ONE VIEW, PORTABLE ([id number]) IMPRESSION: 1. No acute cardiopulmonary disease. Approved by: Delgado Cano M.D. on 05/09/2017 at 13:42 ECG 12 Lead ECG Interpretation: old anterior infarct nonspecific T abnormalities in the lateral leads Time: 13:39 Interpreted by: ED physician Normal ECG Interpretation: Normal rate (75), Normal sinus rhythm Other Diagnostics EGD and Colonscopy: FINDINGS: 1. The patient had both left and right-sided diverticula. In the sigmoid colon, there was one diverticulum that had a few scattered erosions but no evidence of any nonbleeding visible vessel or sign of active bleeding. When we first arrived in the rectum, there was yellow residual prep and stool debris. No residual blood anywhere. I did not appreciate any significant polyps or mass lesions throughout. No inflammatory features. The terminal ileum was interrogated and appeared visually normal. The ileocecal valve was large and puffy. Mild internal hemorrhoids were noted without fissuring. No significant hemorrhoidal engorgement and no stigmata of recent bleeding appreciated. 2. Duodenum: In the duodenal bulb, there was an approximately 5-6 mm polyp just inside the pyloric channel. No ulcers. No significant erosions. No new or old blood in the duodenum. We elected to take a small biopsy of the polyp in the duodenal bulb for histopathology. 3. Stomach: No new or old blood. No ulcers or outlet obstruction. There were some very mild erosive features in the antrum consistent with aspirin use. Retroflexed views of the LES disclosed a sliding hiatal hernia. 4. Esophagus: The squamocolumnar junction correlated with the top of the gastric folds. The GEJ was at about 42 cm from the incisors. There was a sliding hiatal hernia and a subtle nonobstructing Schatzki's ring. No active inflammation anywhere. No suggestion of any Bonilla's. The remainder of the esophagus was unremarkable. ENDOSCOPIC DIAGNOSES: 1. No sign of any ongoing active bleeding. 2. Mild focus of what appears to be self-limited diverticulitis in the sigmoid. 3. Pandiverticulosis. 4. Mild internal hemorrhoids. 5. Sliding hiatal hernia. 6. Nonobstructing Schatzki's. 7. Mild erosive gastropathy. 8. Diminutive duodenal polyp. Brief History Nicholas Farmer is a 76 y/o male with a significant PMH of STEMI (10/29) s/p CABG X3 and combined AICD and pacemaker implant about 6 weeks ago, diabetes mellitus Type II, and thyroid cancer s/p thyroidectomy and radiation who presents to the ED with bloody diarrhea. Patient states he had his first bowel movement around 10:00 am today, described as soft in consistency and cranberry colored. Had 3 more bloody bowel movements before presentation to ER. Admits to recent changes in diet, including increased fiber. Denies dizziness, loss of balance, or syncope. Denies abdominal pain, nausea or vomiting. Denies associated fever or chills as well as lightheadedness, visual changes, chest pain, SOB. Denies previous history of similar symptoms, although has noticed that his stool is softer for last month. He notes that he has skin tags in the breezy-anal area that can sometimes bleed but very minimally. Denies significant alcohol use or smoking history. Pertinent negative PMH of GERD or stomach ulcers. Denies NSAID use but does take aspirin 81 mg daily. Last use of antibiotics was about 6 weeks ago. Denies any recent unintentional weight loss, fatigue, or weakness. Reports last colonoscopy about 5-10 years ago was normal. ED course: Vital signs in the ED were: Temp 36.8, HR 93, RR 18, BP 127/81, 100% RA. Patient had 4 bowel movements, consistent with diarrhea and melanotic appearance. Pertinent labs include: WBC of 10.2, HGB 13.7, HCT 41.8. About 1 hour later, Hgb decreased to 12.3 and Hct down to 37.7. GI, Dr. Francis was consulted. Patient Was started on Protonix bolus (8 mg IV 1x) and protonix drip and normal saline (1000 ml IV 1x). When patient was transferred on the floor, nurse noticed that the stool did not appear melanotic, but rather bright red like hematochezia. He is being admitted for likely GI bleed with resultant normocytic anemia. Hospital Course Nicholas Farmer is a 76 y/o male with a significant PMH of STEMI (10/29) s/p CABG X3 and combined AICD and pacemaker implant about 6 weeks ago, diabetes mellitus Type II, and thyroid cancer s/p thyroidectomy and radiation who presents to the ED with bloody diarrhea, initially bright red blood followed by melena. Pertinent labs include: WBC of 10.2, HGB 13.7, HCT 41.8. About 1 hour later, Hgb decreased to 12.3 and Hct down to 37.7. GI, Dr. Francis was consulted. Patient Was started on Protonix bolus (8 mg IV 1x) and protonix drip and normal saline (1000 ml IV 1x). He was admitted for likely GI bleed with resultant normocytic anemia. Acute GI bleed with Melena and Hematochezia, present on admission, ongoing. -Patient reported that around 10 am prior to admit, he noticed soft stools with bright red blood. ED reports that patient had multiple episodes of diarrhea with melanotic stools. Nurse described the stool as more like hematochezia. -Possible etiologies of Upper VS Lower GI bleed include: PUD, erosive gastropathy, esophagitis, diverticular bleed, polyp/tumor VS infectious etiology -BUN/CR ratio 30 -H/H on admit was 13.7/ 41.8. 1 hour later, H/H trended down to 12.3/37.7. -Blood pressures have remained stable. Patient received 1L NS bolus in ED. -Patient is not on any anticoagulation. Takes ASA daily. Held ASA -IV protonix bolus and drip initiated in the ED. Discontinued given negative EGD findings -Blood Typed and Crossed. Held 2 units of PRBCs. Patient received 1 unit of PRBcs because Hgb decreased to 7.7 -Trended H/H q6hrs. Transfuse with threshold of Hgb <8 given extensive cardiovascular history of CAD, consent has been signed for transfusion -Advanced diet as tolerated -Stool sent for cultures were negative -Gastroenterology, Dr. Francis was consulted in the ED and took patient for colonoscopy and EGD on 05/10/17 - There were no sign of any ongoing active bleeding. Other findings include: self-limited diverticulitis in the sigmoid, Pandiverticulosis, Mild internal hemorrhoids, Sliding hiatal hernia, Nonobstructing Schatzki's, Mild erosive gastropathy, Diminutive duodenal polyp. -Patient had a bowel movement prior to discharge without signs of bleeding. Hemoglobin during discharge was 9.2 Patient will have close follow-up with PCP in a week and repeat CBC to make sure H/H is stable. Acute Blood Loss Normocytic Anemia, present on admission, ongoing. -H/H on admit was 13.7/ 41.8. 1 hour later, H/H trended down to 12.3/37.7. -Trended H/H q6hrs. Transfuse with threshold of Hgb <8 given extensive cardiovascular history of CAD --Blood Typed and Crossed. 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 6.6 -Follow-up with PCP History of STEMI s/p CABG X3 and combined AICD/pacemaker implant, present on admission, chronic -EKG in the ED shows NSR with HR 75 and evidence of old anterior infarct -Continued Carvedilol, Entresto and Spironolactone -Monitored telemetry History of thyroid carcinoma s/p thyroidectomy and radiation -Continued Levothyroxine Disposition: Per gastroenterology, there were no active bleeding found on colonoscopy and EGD but it is likely that the bleed originated from the diverticulum identified in the sigmoid. We continued to trend H/H to and assess patient for hemodynamic stability and observe for any more episodes of bleed. Patient received 1 unit of PRBC and had a non-bloody bowel movement. Discharged to home in stable condition with close follow-up with PCP. Code Status: Full Code Exam Vital Signs (Last) Date Time Temp Pulse Resp B/P Pulse Ox O2 Delivery O2 Flow Rate FiO2 05/11/17 11:26 71 20 117/64 98 Room Air 05/11/17 08:36 36.8 Exam General: Patient is lying comfortably on bed, AAOX3, not in acute distress, cooperative and pleasant. HEENT: head normocephalic and atraumatic, PERRLA, EOMI, no scleral icterus, noninjected conjunctiva Neck: neck supple, non-tender, no lymphadenopathy, trachea midline, no JVD CV: regular rate and rhythm, s1 and s2 heard, radial pulses equal bilaterally, no rubs, murmurs or gallops, no edema Lungs: Clear to auscultation bilaterally, no wheezes, rales or rhonchi, no increased work of breathing Abdomen: hyperactive bowel sounds on 4Q, soft, non-distended, non-tender to palpation, no organomegally, Skin: warm and dry, CABG incision well healed, incision from AICD/ ppm healing properly, no erythema, or bleeding Musculoskeletal: 5/5 UE and LE strength bilaterally, full ROM bilaterally Neuro: Grossly neurologically intact, cranial nerves II through XII intact, no dyskinesia, dysmetria, or dysdiadochokinesia noted, decreased sensation on soles of feet bilaterally Psych: Normal mood and affect Test 05/09/17 12:34 05/09/17 16:16 05/09/17 17:58 05/10/17 03:45 Prothrombin Time 10.3sec (8.1-12.5) Prothromb Time International Ratio 0.96ratio Magnesium Level 2.0mg/dL (1.6-2.6) Troponin T < 0.010ug/L (0.0-0.011) Hold [place] Top Tube Received (Received) Urine Color Yellow (YELLOW) Urine Appearance Clear (CLEAR,HAZY) Urine pH 5.5 (5.0-8.0) Urine Specific [place] 1.025 (1.003-1.035) Urine Protein Negativemg/dL (NEG,TRACE) Urine Glucose (UA) Negativemg/dL (NEGATIVE) Urine Ketones Negativemg/dL (NEGATIVE) Urine Occult Blood Negative (NEGATIVE) Urine Nitrite Negative (NEGATIVE) Urine Bilirubin Negative (NEGATIVE) Urine Urobilinogen Normalmg/dL (NORMAL) Urine Leukocyte Esterase Negative (NEGATIVE) Urine RBC 0-2/hpf (0-2) Urine WBC 0-5/hpf (0-5) Urine Epithelial Cells Few/hpf (NONE-MOD) Urine Crystals None seen (NONE SEEN) Urine Bacteria Few/hpf (NONE-FEW) Urine Hyaline Casts None/lpf (NONE) Urine Granular Casts None seen (NONE SEEN) Urine Waxy Casts None seen (NONE SEEN) Urine Red Blood Cell Casts None seen (NONE SEEN) Urine White Blood Cell Casts None seen (NONE SEEN) Urine Mucus None seen (None Seen) Urine Trichomonas None seen (NONE SEEN) Urine Yeast None (NONE SEEN) Urinalysis Comment None Urine Culture Reflexed Not indicated Hold Purple Top Tube Received (Received) Neutrophils (%) (Auto) 72.2% (40-74) Lymphocytes (%) (Auto) 20.6% (14-46) Monocytes (%) (Auto) 6.5% (4-12) Eosinophils (%) (Auto) 0.5% (0-5) Basophils (%) (Auto) 0.1% (0-3) Hemoglobin A1c 6.6% (4.8-5.6) Test 05/11/17 02:40 05/11/17 08:27 White Blood Count 5.9th/mm3 (3.8-10.1) Red Blood Count 2.72mil/mm3 (4.40-5.80) Mean Corpuscular Volume 89.3fL (81-100) Mean Corpuscular Hemoglobin 29.0pg (27.0-35.0) Mean Corpuscular Hemoglobin Concent 32.5% (32.0-37.0) Red Cell Distribution Width 15.5% (12.3-15.4) Platelet Count 190bil/L (150-400) Sodium Level 139mEq/L (134-144) Potassium Level 3.7mEq/L (3.5-5.2) Chloride Level 104mEq/L (97-108) Carbon Dioxide Level 25mmol/L (18-29) Blood Urea Nitrogen 16mg/dL (8-27) Creatinine 0.84mg/dL (0.76-1.27) Estimat Glomerular Filtration Rate 95mL/min (>59) Glucose Level 158mg/dL (60-99) Calcium Level 8.0mg/dL (8.5-10.1) Total Bilirubin 0.3mg/dL (0.0-1.2) Aspartate Amino Transf (AST/SGOT) 13U/L (0-50) Alanine Aminotransferase (ALT/SGPT) 15U/L (0-44) Alkaline Phosphatase 52U/L (25-160) Total Protein 4.7g/dL (6.4-8.4) Albumin 3.3g/dL (3.4-5.0) Hemoglobin 9.2g/dL (13.8-17.2) Hematocrit 27.7% (41.0-50.0) Discharge Medications Discharge Medications Aspirin (Aspirin) 81 Mg Tablet 162 MG PO HS (Reported) Atorvastatin Calcium (Atorvastatin Calcium) 40 Mg Tablet 40 MG PO HS (Reported) Carvedilol (Carvedilol) 3.125 Mg Tablet 3.125 MG PO BID (Reported) Levothyroxine (Levothyroxine) 137 Mcg Tablet 137 MCG PO HS (Reported) Metformin (Glucophage) 1,000 Mg Tablet 1,000 MG PO BID (Reported) Sacubitril/Valsartan (Entresto 49 mg-51 mg Tablet) 49 Mg-51 Mg Tablet 1 TAB PO BID (Reported) Spironolactone (Spironolactone) 25 Mg Tablet 25 MG PO QAM (Reported) As needed diphenhydrAMINE HCl (Benadryl) 25 Mg Capsule 25 MG PO DAILY PRN PRN allergies ( Reported) Followup Plan Disposition: Discharged to home in stable condition Follow-up plan Please follow up with PCP 3-7 days. Discharge Diet: Heart Healthy Discharge Activity: No restrictions Patient Instructions You came into the hospital because you were having bloody bowel movements. [facility]immer, Dr. Francis evaluated you and decided that he would do a colonoscopy and an endoscopy to figure out the source of the bleed. Although he found no active sources of bleeding, it is possible that the bleeding may have been due to a self-limited diverticulitis in the sigmoid. The colon sometimes has small pouches in its holt. These pouches are called "diverticula." Many people who have these pouches have no symptoms. Diverticulitis happens when these pouches develop a small tear and can be inflamed as well as bleed. During your colonoscopy and endoscopy, Dr. Francis also found Mild internal hemorrhoids, a Sliding hiatal hernia, a Nonobstructing Schatzki's ring, Mild erosive gastropathy, and Diminutive duodenal polyp that was removed. We monitored your blood counts throughout your hospital stay. The lowest was a Hemoglobin of 7.7 and you were transfused with 1 unit of blood. This improved your hemoglobin to 9.2. Prior to leaving, you were able to have a bowel movement with no evidence of blood. As we discussed, If you have had diverticulitis, it's a good idea to eat a lot of fiber. Good sources of fiber include fruits, oats, beans, peas, and green leafy vegetables. If you do not already eat fiber-rich foods, wait until after your symptoms get better to start. You do not need to avoid seeds, nuts, popcorn , or other similar foods because there is no strong evidence for this. Please follow-up with your primary care provider in a week. You will likely need to get a CBC lab work done so that your doctor can check to make sure that your blood counts have remained stable. If you see any more signs of bloody bowel movements, please contact your doctor emergently or go to the Emergency Room. Follow-up Provider: Marcel Nice MD Follow-up with PCP in: 1 week (3-7 days ) Time spent Greater than 35 minutes Attending Statement I have seen and evaluated patient at bedside in addition to directly supervising care provided by resident physician on 05/11/2017. I agree with above documentation. copies to: Marcel Nice MD, Alexa N DO May 11, 2017 20:03 Chalino Hubbard DO May 11, 2017 22:16
== END 2017-05-11 15:15 | disposition home or self-care (01) | DRG 378 ==
LOC: SED 11:18 → PCC 14:07
PROVIDERS: ADMIT Neuromusculoskeletal Medicine & OMM; ATTEND Family Medicine
PROC: 0DJD8ZZ Inspection of Lower Intestinal Tract, Via Natural or Artificial Opening Endoscopic (ICD-10-PCS; principal; 2017-05-10 07:30)
PROC: 0DB98ZX Excision of Duodenum, Via Natural or Artificial Opening Endoscopic, Diagnostic (ICD-10-PCS; 2017-05-10 07:30)
PROC: 30233N1 Transfusion of Nonautologous Red Blood Cells into Peripheral Vein, Percutaneous Approach (ICD-10-PCS; 2017-05-11)
DX: K57.31 Diverticulosis of large intestine without perforation or abscess with bleeding (principal); D62 Acute posthemorrhagic anemia; K31.9 Disease of stomach and duodenum, unspecified; K22.2 Esophageal obstruction; K44.9 Diaphragmatic hernia without obstruction or gangrene; E11.42 Type 2 diabetes mellitus with diabetic polyneuropathy; E89.0 Postprocedural hypothyroidism; I25.10 Atherosclerotic heart disease of native coronary artery without angina pectoris; K64.8 Other hemorrhoids; Z87.891 Personal history of nicotine dependence; I25.2 Old myocardial infarction; Z79.82 Long term (current) use of aspirin; Z95.1 Presence of aortocoronary bypass graft; Z79.84 Long term (current) use of oral hypoglycemic drugs; Z95.810 Presence of automatic (implantable) cardiac defibrillator